=== PATIENT | male | born 1945 | race Caucasian/White ===

== ENCOUNTER 2016-08-29 08:47 | Day surgery (SDC) | payer MEDICARE ==
--- NOTE | ~2016-08-29 | EGD ---
EGD REPORT [facility] [address] [place] [id number] NAME: ELISSA ANSARI : [birth year] STATUS : REG [facility]#: [id number] AGE: 71 ADM/REG DATE : 08/29/16 MR#: [id number] REPORT SERV DATE: 08/29/16 DICTATED BY: RICKY GOMES DATE: 08/29/16 REPORT STATUS : Draft TRANSCRIBED [facility]: [facility] DATE: 08/29/16 Endoscopy Center Patient Name: Elissa Ansari Date of : 1945 Attending MD: RICKY GOMES, Procedure Date No Time: 08/29/2016 Procedure: Upper GI endoscopy Indications: Epigastric abdominal pain, Abdominal pain in the right upper quadrant, Nausea with vomiting Referring MD: ROBERT LANCASTER Medicines: Monitored Anesthesia Care Complications: No immediate complications. Estimated blood loss: None. Procedure: Pre-Anesthesia Assessment: - ASA Grade Assessment: III - A patient with severe systemic disease. After obtaining informed consent, the endoscope was passed under direct vision. Throughout the procedure, the patient's blood pressure, pulse, and oxygen saturations were monitored continuously. The [facility] H190 [id number] was introduced through the mouth, and advanced to the second part of duodenum. The upper GI endoscopy was accomplished without difficulty. The patient tolerated the procedure well. Findings: The esophagus was normal. Patchy mild inflammation characterized by erythema was found in the entire examined stomach. Biopsies were taken with a cold forceps for histology. Verification of patient identification for the specimen was done. Estimated blood loss was minimal. The cardia and gastric fundus were normal on retroflexion. The examined duodenum was normal. Multiple biopsies were obtained in the 2nd part of the duodenum with cold forceps for histology. Impression: - Normal esophagus. - Gastritis. Biopsied. - Normal examined duodenum. - Multiple biopsies were obtained in the 2nd part of the duodenum. Recommendation: - Patient has a contact number available for emergencies. The signs and symptoms of potential delayed complications were discussed with the patient. Return to normal activities tomorrow. Written discharge instructions were provided to the patient. EGD REPORT [address] [address] NAME: ELISSA ANSARI : [birth year] STATUS : REG [place] PAT#: [id number] AGE: 71 ADM/REG DATE : 08/29/16 MR#: [id number] REPORT SERV DATE: 08/29/16 DICTATED BY: RICKY GOMES DATE: 08/29/16 REPORT STATUS : Draft TRANSCRIBED BY: [employer] DATE: 08/29/16 - Return to previous diet. - Continue present medications. - Resume Coumadin (warfarin) at prior dose today. - Do a gastric emptying study. - Await pathology results. Procedure Code(s): --- Professional --- 78246, Esophagogastroduodenoscopy, flexible, transoral; with biopsy, single or multiple Diagnosis Code(s): --- Professional --- K29.70, Gastritis, unspecified, without bleeding R10.13, Epigastric pain R10.11, Right upper quadrant pain R11.2, Nausea with vomiting, unspecified CPT copyright 2013 [employer]. All rights reserved. The codes documented in this report are preliminary and upon oral and maxillofacial surgery resident review may be revised to meet current compliance requirements. RICKY GOMES, 08/29/2016 11:12 AM Number of Addenda: 0 Note Initiated On: 08/29/2016 10:38 AM [address] [place] [address]
--- NOTE | ~2016-08-29 | EGD ---
EGD REPORT [facility] [address] [place] [address] NAME: ELISSA ANSARI : [birth year] STATUS : REG [facility]#: [id number] AGE: 71 ADM/REG DATE : 08/29/16 MR#: [id number] REPORT SERV DATE: 08/29/16 DICTATED BY: RICKY GOMES DATE: 08/29/16 REPORT STATUS : Draft [facility]ANS[facility]IBED [facility]: [facility] DATE: 08/29/16 Endoscopy Center Patient Name: Elissa Ansari Date of : 1945 Attending MD: RICKY GOMES, Procedure Date No Time: 08/29/2016 Procedure: Upper GI endoscopy Indications: Epigastric abdominal pain, Abdominal pain in the right upper quadrant, Nausea with vomiting Referring MD: ROBERT LANCASTER Medicines: Monitored Anesthesia Care Complications: No immediate complications. Estimated blood loss: None. Procedure: Pre-Anesthesia Assessment: - ASA Grade Assessment: III - A patient with severe systemic disease. After obtaining informed consent, the endoscope was passed under direct vision. Throughout the procedure, the patient's blood pressure, pulse, and oxygen saturations were monitored continuously. The [facility] H190 [id number] was introduced through the mouth, and advanced to the second part of duodenum. The upper GI endoscopy was accomplished without difficulty. The patient tolerated the procedure well. Findings: The esophagus was normal. Patchy mild inflammation characterized by erythema was found in the entire examined stomach. Biopsies were taken with a cold forceps for histology. Verification of patient identification for the specimen was done. Estimated blood loss was minimal. The cardia and gastric fundus were normal on retroflexion. The examined duodenum was normal. Multiple biopsies were obtained in the 2nd part of the duodenum with cold forceps for histology. Impression: - Normal esophagus. - Gastritis. Biopsied. - Normal examined duodenum. - Multiple biopsies were obtained in the 2nd part of the duodenum. Recommendation: - Patient has a contact number available for emergencies. The signs and symptoms of potential delayed complications were discussed with the patient. Return to normal activities tomorrow. Written discharge instructions were provided to the patient. EGD REPORT [address] [address] NAME: ELISSA ANSARI : [birth year] STATUS : REG [facility] PAT#: [id number] AGE: 71 ADM/REG DATE : 08/29/16 MR#: [id number] REPORT SERV DATE: 08/29/16 DICTATED BY: RICKY GOMES DATE: 08/29/16 REPORT STATUS : Draft TRANSCRIBED BY: [employer] DATE: 08/29/16 - Return to previous diet. - Continue present medications. - Resume Coumadin (warfarin) at prior dose today. - Do a gastric emptying study. - Await pathology results. Procedure Code(s): --- Professional --- 06894, Esophagogastroduodenoscopy, flexible, transoral; with biopsy, single or multiple Diagnosis Code(s): --- Professional --- K29.70, Gastritis, unspecified, without bleeding R10.13, Epigastric pain R10.11, Right upper quadrant pain R11.2, Nausea with vomiting, unspecified CPT copyright 2013 [employer]. All rights reserved. The codes documented in this report are preliminary and upon managing member review may be revised to meet current compliance requirements. RICKY GOMES, 08/29/2016 11:12 AM Number of Addenda: 0 Note Initiated On: 08/29/2016 10:38 AM [address] [place] [address]
--- NOTE | ~2016-08-29 | EGD ---
EGD REPORT [facility] [address] [place] [address] NAME: ELISSA ANSARI : [birth year] STATUS : REG [facility]#: [id number] AGE: 71 ADM/REG DATE : 08/29/16 MR#: [id number] REPORT SERV DATE: 08/29/16 DICTATED BY: RICKY GOMES DATE: 08/29/16 REPORT STATUS : Draft [facility]ANS[facility]IB[facility]: [facility] DATE: 08/29/16 Endoscopy Center Patient Name: Elissa Ansari Date of : 1945 Attending MD: RICKY GOMES, Procedure Date No Time: 08/29/2016 Procedure: Upper GI endoscopy Indications: Epigastric abdominal pain, Abdominal pain in the right upper quadrant, Nausea with vomiting Referring MD: ROBERT LANCASTER Medicines: Monitored Anesthesia Care Complications: No immediate complications. Estimated blood loss: None. Procedure: Pre-Anesthesia Assessment: - ASA Grade Assessment: III - A patient with severe systemic disease. After obtaining informed consent, the endoscope was passed under direct vision. Throughout the procedure, the patient's blood pressure, pulse, and oxygen saturations were monitored continuously. The [facility] H190 [id number] was introduced through the mouth, and advanced to the second part of duodenum. The upper GI endoscopy was accomplished without difficulty. The patient tolerated the procedure well. Findings: The esophagus was normal. Patchy mild inflammation characterized by erythema was found in the entire examined stomach. Biopsies were taken with a cold forceps for histology. Verification of patient identification for the specimen was done. Estimated blood loss was minimal. The cardia and gastric fundus were normal on retroflexion. The examined duodenum was normal. Multiple biopsies were obtained in the 2nd part of the duodenum with cold forceps for histology. Impression: - Normal esophagus. - Gastritis. Biopsied. - Normal examined duodenum. - Multiple biopsies were obtained in the 2nd part of the duodenum. Recommendation: - Patient has a contact number available for emergencies. The signs and symptoms of potential delayed complications were discussed with the patient. Return to normal activities tomorrow. Written discharge instructions were provided to the patient. EGD REPORT [address] [address] NAME: ELISSA ANSARI : [birth year] STATUS : REG [facility] [place] PAT#: [id number] AGE: 71 ADM/REG DATE : 08/29/16 MR#: [id number] REPORT SERV DATE: 08/29/16 DICTATED BY: RICKY GOMES DATE: 08/29/16 REPORT STATUS : Draft TRANSCRIBED BY: [employer] DATE: 08/29/16 - Return to previous diet. - Continue present medications. - Resume Coumadin (warfarin) at prior dose today. - Do a gastric emptying study. - Await pathology results. Procedure Code(s): --- Professional --- 79112, Esophagogastroduodenoscopy, flexible, transoral; with biopsy, single or multiple Diagnosis Code(s): --- Professional --- K29.70, Gastritis, unspecified, without bleeding R10.13, Epigastric pain R10.11, Right upper quadrant pain R11.2, Nausea with vomiting, unspecified CPT copyright 2013 [employer]. All rights reserved. The codes documented in this report are preliminary and upon cutting room supervisor review may be revised to meet current compliance requirements. RICKY GOMES, 08/29/2016 11:12 AM Number of Addenda: 0 Note Initiated On: 08/29/2016 10:38 AM [address] [place] [address]
[~2016-08-29 08:47] MED LIST: AMB10 PO; AMIT10 PO; ASA5GR PO; ASAB PO; CIP5 PO; CRESTOR20 MG PO; EFFEX75 PO; EFFEXOR XR150 MG PO; HALF81 PO; IRON325 MG PO; LOP25 PO; LOP50 PO; P10 PO; PLAVIX PO; PRILOSEC40 MG PO; PRIN20 PO; PRIN5 PO; XARELTO20 MG; XARELTO20 MG PO; ZOCOR40 PO
[2016-08-29 10:34] LABS: INTERNATIONAL NORMAL RATI 1.1 UNITS (-)
[2016-08-29 10:36] LABS: PROTIME (NOT ORD) 14.1 SEC (12.0-14.5)
== END 2016-08-29 23:59 | disposition home or self-care (01) ==
LOC: DMU 08:47
PROVIDERS: Internal Medicine Gastroenterology
PROC: 0DB98ZX Excision of Duodenum, Via Natural or Artificial Opening Endoscopic, Diagnostic (ICD-10-PCS; 2016-08-29)
PROC: 0DB68ZX Excision of Stomach, Via Natural or Artificial Opening Endoscopic, Diagnostic (ICD-10-PCS; principal; 2016-08-29 12:00)
DX: K31.89 Other diseases of stomach and duodenum (principal); R10.13 Epigastric pain; R10.11 Right upper quadrant pain; R11.2 Nausea with vomiting, unspecified; E66.01 Morbid (severe) obesity due to excess calories; I10 Essential (primary) hypertension; I48.0 Paroxysmal atrial fibrillation; I25.10 Atherosclerotic heart disease of native coronary artery without angina pectoris; K21.9 Gastro-esophageal reflux disease without esophagitis; Z79.899 Other long term (current) drug therapy
CPT/HCPCS: 85610; 88305